=== PATIENT | male | born 1975 | race Caucasian/White ===

== ENCOUNTER 2020-09-02 11:44 | Emergency (ER) | payer BC ==
[2020-09-02 11:59] VITALS: BP 122/91
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
[2020-09-02 13:39] VITALS: PULSE 78
[2020-09-02 13:44] VITALS: O2SAT 95
--- NOTE | 2020-09-02 18:59 | XRAY ---
Indication: Pain following fall. Comparison: None 3 view left ankle demonstrates mild displaced lateral malleolus fracture with soft tissue swelling and minimal widened talotibial articulation medially. No other bony, articular, or soft tissue abnormalities.
--- NOTE | 2020-09-02 19:04 | XRAY ---
Indication: Left rib pain following fall. Multiple contiguous axial images obtained through the chest using 80 cc Isovue 370 contrast. Comparison: None Lungs demonstrates mild bibasilar subsegmental atelectasis/scarring. No suspicious pulmonary mass, infiltrate, consolidation, effusion, or pneumothorax. Heart is not enlarged. Aorta is normal in course and caliber. Bone windows reveal minimally displaced lateral 10th acute rib fracture and healing right anterior 5th/6th rib fractures. Limited upper abdomen is unremarkable. Impression: 1. Left 10th acute rib fracture and healing right 5th/6th rib fractures without pneumothorax or hemothorax. 2. Bibasilar subsegmental atelectasis/scarring. Comment: Preliminary interpretation was made by [facility]. No critical discrepancy.
== END 2020-09-02 14:02 | disposition home or self-care (01) ==
LOC: ED 11:44
DX: S82.892A Other fracture of left lower leg, initial encounter for closed fracture (principal); M25.572 Pain in left ankle and joints of left foot; X50.1XXA Overexertion from prolonged static or awkward postures, initial encounter; Y93.9 Activity, unspecified; Y92.89 Other specified places as the place of occurrence of the external cause; W18.30XA Fall on same level, unspecified, initial encounter; M54.6 Pain in thoracic spine; R07.81 Pleurodynia; S22.39XA Fracture of one rib, unspecified side, initial encounter for closed fracture
CPT/HCPCS: 71260; 73610; 99284

== ENCOUNTER 2020-09-14 06:16 | Day surgery (SDC) | payer BC ==
[2020-09-14] MEDS ORDERED: CEFAZOLIN 2 GM-D5W BAG** 2 GM/50 ML ML IV ONE (06:25)
[2020-09-14] MEDS ORDERED: KEFZOL 1 GM/50 ML PREMIX** 1 GM/50 ML IVPB IV SCH (06:30)
[2020-09-14] MEDS ORDERED: Lactated Ringers 1,000 ML IV SCH (06:30)
[2020-09-14] MEDS ORDERED: CEFAZOLIN 2 GM-D5W BAG** 2 GM/50 ML ML IV SCH (07:00)
[2020-09-14] MEDS ORDERED: SUBLIMAZE 100 MCG/2 ML ONE ×3 (07:21→09:31)
[2020-09-14] MEDS ORDERED: Versed 2 MG/2 ML Injection ONE (07:21)
[2020-09-14] MEDS ORDERED: Xylocaine-Mpf 2% 5 Ml Vial ONE (07:22)
[2020-09-14] MEDS ORDERED: Naropin 0.5% 30 ML VIAL ONE (07:24)
[2020-09-14] MEDS ORDERED: Zemuron 100 MG/10 ML ONE (07:54)
[2020-09-14] MEDS ORDERED: DIPRIVAN 200 MG/20 ML IV ONE (07:54)
[2020-09-14] MEDS ORDERED: Zofran 4 MG/2 ML VIAL ONE (10:05)
[2020-09-14] MEDS ORDERED: BRIDION 200MG/2ML IV ONE (10:07)
[2020-09-14] MEDS ORDERED: TORAdol 30 mg Injection ONE (10:40)
[2020-09-14 11:28] VITALS: BP 124/88; PULSE 107; O2SAT 95
--- NOTE | 2020-09-14 13:05 | XRAY ---
4 minutes and 5 seconds fluoroscopy time in surgery for open reduction and internal fixation of the left ankle.
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
--- NOTE | 2020-09-15 23:07 | XRAY ---
Exam: Intraoperative C-arm images of the left ankle from 09/14/2020. Comparison: 3 view left ankle series from 09/02/2020. Indication: Open reduction and internal fixation of left ankle fracture. Findings: The patient has a known oblique fracture of the distal left fibula centered just above the tibiotalar joint. 4 minutes and 5 seconds of intraoperative fluoroscopy time was provided. 19 intraoperative C-arm images were obtained. On the final set of AP and lateral C-arm images, a mildly curved orthopedic sideplate with 5 short screws and 2 longer screws traverse the previously noted oblique fracture of the distal left fibula and secure the fractured elements in anatomical position and alignment. The 2 longer metallic screws traverse not only the left fibula but also the distal left tibia. The left ankle mortise remains slightly nonuniform with the medial aspect appearing slightly wider than the lateral aspect. Impression: 1. Open reduction and internal fixation of distal left fibula fracture, as discussed above.
== END 2020-09-14 11:36 | disposition home or self-care (01) ==
LOC: SDC 06:16
PROVIDERS: ATTEND Podiatrist Foot & Ankle Surgery
DX: S82.62XA Displaced fracture of lateral malleolus of left fibula, initial encounter for closed fracture (principal); V00.841A Fall from standing electric scooter, initial encounter
CPT/HCPCS: 27792; 27829; 64450; 73600; 76000; 76937; 76942; J0690; J1885; J2250; J2405; J2704; J2795; J3010